=== PATIENT | female | born 1965 | race American Indian/Alaskan Native ===

== ENCOUNTER 2021-04-24 16:37 | Emergency (ER) | payer OTHER ==
[2021-04-24 16:59] VITALS: BP 134/74
[2021-04-24] MEDS ORDERED: IBUPROFEN 600 MG TAB PO ONE (17:19)
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
--- NOTE | 2021-04-24 17:59 | XRay Report ---
Left knee 3 views INDICATION: Left knee pain following injury IMPRESSION: Severely comminuted and depressed fracture involving the lateral tibial plateau. The frac ture extends into the proximal metaphysis of the tibia. There is superimposed large knee effusion and degenerative changes of the left knee. Signer Name: Avtar Alexandre MD Signed: 04/24/2021 5:55 PM Workstation Name: [id number]
[2021-04-24] MEDS ORDERED: oxyCODONE /ACETAMINOPHEN 5-325MG TAB ONE (18:31)
[2021-04-24] MEDS ORDERED: HYDROcodone/ACETAMINOPHEN 7.5-325MG TAB PO ONE (19:21)
== END 2021-04-24 20:05 | disposition home or self-care (01) ==
LOC: ED 16:37
DX: S82.142A Displaced bicondylar fracture of left tibia, initial encounter for closed fracture (principal); J45.909 Unspecified asthma, uncomplicated; Z90.710 Acquired absence of both cervix and uterus; Z79.899 Other long term (current) drug therapy; V49.59XA Passenger injured in collision with other motor vehicles in traffic accident, initial encounter; Y92.410 Unspecified street and highway as the place of occurrence of the external cause; Y93.89 Activity, other specified; Y99.8 Other external cause status